=== PATIENT | female | born 1985 | race Caucasian/White ===

== ENCOUNTER 2016-12-05 13:11 | Day surgery (SDC) | payer MEDICARE, MEDICAID ==
[2016-12-05] VITALS (10 sets, daily range): BP systolic 119–148; BP diastolic 53–89; PULSE 51–93; TEMP 97.6–98.6
[~2016-12-05] VITALS: Ht 167.6 cm; Wt 93.4 kg
[~2016-12-05 13:11] MED LIST: FISH OIL1000 MG PO; GLUCOPHAGE XR500 M1 PO; LOXAPINE5 MG PO; LOXITANE PO; MULTIPLE VITAMI1 CAP PO; PROZAC40 MG PO; RITALIN 20M20 MG/TAB PO; RITE AID NATU200 MCG PO; SELENIUM200 MC5 PO; STOOL SOFTENER100 M2 PO; VITAMIN C500 MG PO; ZINC
[2016-12-05] MEDS ORDERED: CONCERTA54 MG PO (14:32)
[2016-12-05] MEDS ORDERED: LAMICTAL XR200 MG PO (14:32)
[2016-12-06 02:38] VITALS: BP 110/58; PULSE 71; TEMP 97.5
[2016-12-06 06:05] VITALS: BP 107/56; PULSE 65; TEMP 98.5
[2016-12-06 09:30] VITALS: BP 140/75; PULSE 85; TEMP 97.9
== END 2016-12-06 10:19 | disposition home or self-care (01) ==
LOC: SDCO 13:11 → SURG 17:16 → SDCO 12-06 10:19
DX: N20.0 Calculus of kidney (principal)
CPT/HCPCS: OP; A9284; C1769; J0690; J1100; J1885; J2405; J2704; J2765; J3010; J7120